=== PATIENT | female | born 1995 | race African-American/Black ===

== ENCOUNTER 2016-06-05 22:25 | Inpatient (IN) | payer SELFPAY ==
[~2016-06-05 22:25] MED LIST: BACTRIM DS TAB1 EAC2 PO; BACTRIM DS TABL1 TAB PO; DIBUCAINE EXT; ESGIC PLUS PO; HUMALOG PUMP; HUMALOG100 U/ML; HUMALOG100 U/ML SC; HUMALOG100 UNIT/1 SC; IBUPROFEN200 M1 PO; ICY HOT BALM TP; KEFLEX500 M4 PO; LANTUS100 UNITS/ SC; MOTRIN600 MG PO; MOTRIN800 MG PO; NEXPLANON68 M1 SC; PERCOCET 5/3251 TAB PO; PRENATAL VITAMI1 TAB PO; PYRIDIUM200 MG PO; SKELAXIN800 MG PO; TRIPNIP TOP; TYLENOL EXTRA500 M1 PO; VALTREX1000 MG PO; ZOFRAN ODT4 MG/UDTAB PO; ZOFRAN4 M1 PO
[2016-06-05 23:04] LABS: BASO % 0.5 % (0-2); BASO ABSOLUTE COUNT 0.1 tho/cmm (0.0-0.2); EOS % 0.2 % (0-7); HCT-HEMATOCRIT 47.4 % (34.0-49.0); HGB-HEMOGLOBIN 15.9 gm/dl (12.0-15.5); IMMATURE GRANULOCYTES ABSOLUTE 0.27 tho/cmm (0-0.03); IMMATURE GRANULOCYTES PERCENT 1.8 % (0-0.3); LYMPH ABSOLUTE COUNT 2.3 tho/cmm (0.8-4.5); MCH (MEAN CORPUSCULAR HGB) 31.5 pg (28.0-32.0); MCHC MEAN CORPUSCULAR HGB CONC 33.5 % (32.0-36.0); MEAN PLATELET VOLUME 10.9 cmc (9.4-12.4); MONOCYTE ABSOLUTE COUNT 0.5 tho/cmm (0.0-1.2); NEUTROPHILS % 79.5 % (40-80); RED BLOOD COUNT 5.04 mil/cmm (4.00-5.20); RED CELL DISTRIBUTION WIDTH 12.3 % (12.4-16.4)
[2016-06-05 23:11] LABS: ARTERIAL BLD GAS O2 SATURATION 97 % (95-98); ARTERIAL PO2 146 mmHg (70-100); BICARBONATE 2 mmol/L (21-28)
[2016-06-05 23:17] LABS: ABG CO2 ARTERIAL 2 mmol/L (21-27)
[2016-06-05 23:18] LABS: ARTERIAL BLOOD GAS PCO2 <8 mmHg (32-45); BLOOD GAS BASE EXCESS -31 mM/L (-/+3)
[2016-06-05 23:19] LABS: KETONE-BETA (WHOLE BLOOD) 3.1 mmol/L (0.0-0.6)
[2016-06-05 23:29] LABS: URINE BILIRUBIN NEGATIVE (NEG); URINE BLOOD SMALL (NEG); URINE GLUCOSE (UA) LARGE (NEG); URINE KETONE LARGE (NEG); URINE LEUKOCYTE ESTERASE NEGATIVE (NEG); URINE NITRITE NEGATIVE (NEG); URINE PROTEIN MODERATE (NEG)
[2016-06-05 23:31] LABS: URINE APPEARANCE HAZY; URINE COLOR YELLOW
[2016-06-05 23:56] LABS: URINE AMORPHOUS 2+; URINE RBC 0 /[HPF] (0-5); URINE WBC 0 /[HPF] (0-5)
[2016-06-06 00:28] LABS: PLATELET COUNT 110 tho/cmm (150-450)
[2016-06-06 00:38] LABS: PREGNANCY-SERUM NEGATIVE (NEGATIVE)
[2016-06-06 00:58] LABS: ALB/GLOB RATIO 0.8 (0.8-2.0); ALBUMIN 3.8 g/dl (3.5-5.0); ALKALINE PHOSPHATASE 133 U/L (33-138); ALT/SGPT 64 U/L (12-78); BILIRUBIN,TOTAL 0.4 mg/dl (0-1.5); BLOOD UREA NITROGEN 15 mg/dl (6-24); CALCIUM 7.4 mg/dl (8.5-10.5); CHLORIDE 106 mmol/l (96-110); CREATININE 1.23 mg/dl (0.50-1.10); PHOSPHOROUS 3.6 mg/dl (2.5-4.9); SODIUM 136 mmol/L (135-145); eGFR VALUE FOR BLACK 72 mL/Min
[2016-06-06 01:10] LABS: ANION GAP 30 mmol/L (0-20); AST/SGOT 41 U/L (10-40); MAGNESIUM 2.1 mg/dl (1.8-2.6); POTASSIUM 4.6 mmol/L (3.7-5.1); PROCALCITONIN 0.12 ng/ml (0.05-0.09)
[2016-06-06 01:12] LABS: CARBON DIOXIDE-VENOUS 5 mmol/L (22-32); GLUCOSE 495 mg/dL (70-110)
[2016-06-06 04:00] LABS: MAGNESIUM 1.9 mg/dl (1.8-2.6); POTASSIUM 4.3 mmol/L (3.7-5.1)
[2016-06-06 04:26] LABS: ARTERIAL BLD GAS O2 SATURATION 98 % (95-98); BICARBONATE 6 mmol/L (21-28); BLOOD GAS BASE EXCESS -23 mM/L (-/+3)
[2016-06-06 04:28] LABS: ARTERIAL PO2 122 mmHg (70-100)
[2016-06-06 04:29] LABS: ABG CO2 ARTERIAL 5 mmol/L (21-27); ARTERIAL BLOOD GAS PCO2 18 mmHg (32-45); PH 7.14 Units (7.35-7.45)
[2016-06-06 05:11] LABS: ANION GAP 25 mmol/L (0-20); BLOOD UREA NITROGEN 12 mg/dl (6-24); CALCIUM 7.2 mg/dl (8.5-10.5); CHLORIDE 116 mmol/l (96-110); CREATININE 0.89 mg/dl (0.50-1.10); GLUCOSE 162 mg/dL (70-110); POTASSIUM 4.4 mmol/L (3.7-5.1); SODIUM 143 mmol/L (135-145); eGFR VALUE FOR BLACK >90 mL/Min
[2016-06-06 05:13] LABS: CARBON DIOXIDE-VENOUS 6 mmol/L (22-32)
[2016-06-06 10:50] LABS: ANION GAP 15 mmol/L (0-20); BLOOD UREA NITROGEN 8 mg/dl (6-24); CALCIUM 7.6 mg/dl (8.5-10.5); CHLORIDE 114 mmol/l (96-110); CREATININE 0.85 mg/dl (0.50-1.10); GLUCOSE 106 mg/dL (70-110); POTASSIUM 4.1 mmol/L (3.7-5.1); SODIUM 140 mmol/L (135-145); eGFR VALUE FOR BLACK >90 mL/Min
[2016-06-06 11:00] LABS: CARBON DIOXIDE-VENOUS 15 mmol/L (22-32)
[2016-06-06 16:40] LABS: ANION GAP 18 mmol/L (0-20); BLOOD UREA NITROGEN 7 mg/dl (6-24); CALCIUM 7.6 mg/dl (8.5-10.5); CARBON DIOXIDE-VENOUS 14 mmol/L (22-32); CHLORIDE 113 mmol/l (96-110); CREATININE 0.94 mg/dl (0.50-1.10); GLUCOSE 135 mg/dL (70-110); SODIUM 141 mmol/L (135-145); eGFR VALUE FOR BLACK >90 mL/Min
[2016-06-06 19:48] LABS: ANION GAP 15 mmol/L (0-20); BLOOD UREA NITROGEN 6 mg/dl (6-24); CALCIUM 7.7 mg/dl (8.5-10.5); CARBON DIOXIDE-VENOUS 15 mmol/L (22-32); CHLORIDE 113 mmol/l (96-110); CREATININE 0.84 mg/dl (0.50-1.10); GLUCOSE 133 mg/dL (70-110); POTASSIUM 3.7 mmol/L (3.7-5.1); SODIUM 139 mmol/L (135-145); eGFR VALUE FOR BLACK >90 mL/Min
[2016-06-07 00:55] LABS: BLOOD UREA NITROGEN 5 mg/dl (6-24); CALCIUM 7.6 mg/dl (8.5-10.5); CHLORIDE 112 mmol/l (96-110); SODIUM 139 mmol/L (135-145); eGFR VALUE FOR BLACK >90 mL/Min
[2016-06-07 01:00] LABS: ANION GAP 19 mmol/L (0-20); CARBON DIOXIDE-VENOUS 12 mmol/L (22-32); GLUCOSE 205 mg/dL (70-110); POTASSIUM 3.7 mmol/L (3.7-5.1)
[2016-06-07 04:31] LABS: BASO % 0.1 % (0-2); EOS % 0.1 % (0-7); HGB-HEMOGLOBIN 13.4 gm/dl (12.0-15.5); IMMATURE GRANULOCYTES ABSOLUTE 0.09 tho/cmm (0-0.03); IMMATURE GRANULOCYTES PERCENT 0.5 % (0-0.3); LYMPH % 14.9 % (20-45); LYMPH ABSOLUTE COUNT 2.5 tho/cmm (0.8-4.5); MCHC MEAN CORPUSCULAR HGB CONC 34.4 % (32.0-36.0); MCV (MEAN CELL VOLUME) 90.3 fl (82.0-96.0); MEAN PLATELET VOLUME 9.4 cmc (9.4-12.4); MONO % 4.4 % (0-12); MONOCYTE ABSOLUTE COUNT 0.7 tho/cmm (0.0-1.2); NEUTROPHIL ABSOLUTE COUNT 13.4 tho/cmm (1.6-8.0); NEUTROPHIL-AUTOMATED 13.4 tho/cmm (1.6-8.0); RED BLOOD COUNT 4.32 mil/cmm (4.00-5.20); RED CELL DISTRIBUTION WIDTH 11.8 % (12.4-16.4); WHITE BLOOD COUNT 16.8 tho/cmm (4.0-10.0)
[2016-06-07 04:48] LABS: ANION GAP 19 mmol/L (0-20); BLOOD UREA NITROGEN 4 mg/dl (6-24); CALCIUM 7.7 mg/dl (8.5-10.5); CARBON DIOXIDE-VENOUS 15 mmol/L (22-32); CHLORIDE 109 mmol/l (96-110); CREATININE 0.97 mg/dl (0.50-1.10); MAGNESIUM 1.9 mg/dl (1.8-2.6); POTASSIUM 3.7 mmol/L (3.7-5.1); SODIUM 139 mmol/L (135-145); eGFR VALUE FOR BLACK >90 mL/Min
[2016-06-07 04:51] LABS: GLUCOSE 206 mg/dL (70-110)
[2016-06-07 04:53] LABS: PHOSPHOROUS 0.7 mg/dl (2.5-4.9)
[2016-06-07 05:04] LABS: PLATELET COUNT 195 tho/cmm (150-450)
[2016-06-07 08:45] LABS: ANION GAP 19 mmol/L (0-20); BLOOD UREA NITROGEN 3 mg/dl (6-24); CALCIUM 7.5 mg/dl (8.5-10.5); CARBON DIOXIDE-VENOUS 17 mmol/L (22-32); CHLORIDE 110 mmol/l (96-110); CREATININE 0.86 mg/dl (0.50-1.10); GLUCOSE 172 mg/dL (70-110); POTASSIUM 3.7 mmol/L (3.7-5.1); SODIUM 142 mmol/L (135-145); eGFR VALUE FOR BLACK >90 mL/Min
[2016-06-07 13:05] LABS: ANION GAP 17 mmol/L (0-20); BLOOD UREA NITROGEN 1 mg/dl (6-24); CALCIUM 7.5 mg/dl (8.5-10.5); CARBON DIOXIDE-VENOUS 18 mmol/L (22-32); CHLORIDE 108 mmol/l (96-110); CREATININE 0.81 mg/dl (0.50-1.10); GLUCOSE 178 mg/dL (70-110); POTASSIUM 3.4 mmol/L (3.7-5.1); SODIUM 140 mmol/L (135-145); eGFR VALUE FOR BLACK >90 mL/Min
[2016-06-07 16:00] LABS: KETONE-BETA (WHOLE BLOOD) 0.2 mmol/L (0.0-0.6)
[2016-06-07 16:09] LABS: ANION GAP 15 mmol/L (0-20); BLOOD UREA NITROGEN 1 mg/dl (6-24); CALCIUM 7.4 mg/dl (8.5-10.5); CARBON DIOXIDE-VENOUS 21 mmol/L (22-32); CHLORIDE 105 mmol/l (96-110); CREATININE 0.63 mg/dl (0.50-1.10); GLUCOSE 187 mg/dL (70-110); MAGNESIUM 1.9 mg/dl (1.8-2.6); POTASSIUM 3.3 mmol/L (3.7-5.1); SODIUM 138 mmol/L (135-145); eGFR VALUE FOR BLACK >90 mL/Min
[2016-06-07 19:28] LABS: ANION GAP 16 mmol/L (0-20); BUN/CREATININE RATIO 1.4 RATIO (6-25); CALCIUM 7.4 mg/dl (8.5-10.5); CARBON DIOXIDE-VENOUS 21 mmol/L (22-32); CHLORIDE 105 mmol/l (96-110); CREATININE 0.69 mg/dl (0.50-1.10); GLUCOSE 181 mg/dL (70-110); POTASSIUM 3.2 mmol/L (3.7-5.1); SODIUM 139 mmol/L (135-145); eGFR VALUE FOR BLACK >90 mL/Min
[2016-06-07 19:30] LABS: BLOOD UREA NITROGEN <1 mg/dl (6-24)
[2016-06-07 19:41] LABS: PROCALCITONIN 0.19 ng/ml (0.05-0.09)
[2016-06-07 23:41] LABS: ANION GAP 15 mmol/L (0-20); BLOOD UREA NITROGEN 2 mg/dl (6-24); CALCIUM 7.8 mg/dl (8.5-10.5); CARBON DIOXIDE-VENOUS 23 mmol/L (22-32); CHLORIDE 102 mmol/l (96-110); CREATININE 0.97 mg/dl (0.50-1.10); GLUCOSE 202 mg/dL (70-110); POTASSIUM 3.7 mmol/L (3.7-5.1); SODIUM 136 mmol/L (135-145); eGFR VALUE FOR BLACK >90 mL/Min
[2016-06-08 03:17] LABS: BASO % 0.4 % (0-2); EOS % 0.3 % (0-7); HCT-HEMATOCRIT 38.3 % (34.0-49.0); HGB-HEMOGLOBIN 13.4 gm/dl (12.0-15.5); IMMATURE GRANULOCYTES ABSOLUTE 0.04 tho/cmm (0-0.03); IMMATURE GRANULOCYTES PERCENT 0.4 % (0-0.3); LYMPH % 27.9 % (20-45); LYMPH ABSOLUTE COUNT 2.6 tho/cmm (0.8-4.5); MCH (MEAN CORPUSCULAR HGB) 31.2 pg (28.0-32.0); MCV (MEAN CELL VOLUME) 89.3 fl (82.0-96.0); MEAN PLATELET VOLUME 9.8 cmc (9.4-12.4); MONO % 6.1 % (0-12); MONOCYTE ABSOLUTE COUNT 0.6 tho/cmm (0.0-1.2); NEUTROPHIL ABSOLUTE COUNT 6.1 tho/cmm (1.6-8.0); NEUTROPHIL-AUTOMATED 6.1 tho/cmm (1.6-8.0); NEUTROPHILS % 64.9 % (40-80); PLATELET COUNT 163 tho/cmm (150-450); RED BLOOD COUNT 4.29 mil/cmm (4.00-5.20); RED CELL DISTRIBUTION WIDTH 11.7 % (12.4-16.4); WHITE BLOOD COUNT 9.5 tho/cmm (4.0-10.0)
[2016-06-08 03:30] LABS: MAGNESIUM 2.2 mg/dl (1.8-2.6)
[2016-06-08 03:35] LABS: PHOSPHOROUS 0.7 mg/dl (2.5-4.9)
[2016-06-08 08:37] LABS: ANION GAP 16 mmol/L (0-20); BLOOD UREA NITROGEN 1 mg/dl (6-24); CALCIUM 7.5 mg/dl (8.5-10.5); CARBON DIOXIDE-VENOUS 24 mmol/L (22-32); CHLORIDE 104 mmol/l (96-110); CREATININE 0.58 mg/dl (0.50-1.10); GLUCOSE 179 mg/dL (70-110); POTASSIUM 3.7 mmol/L (3.7-5.1); SODIUM 140 mmol/L (135-145); eGFR VALUE FOR BLACK >90 mL/Min
[2016-06-08 11:59] LABS: ANION GAP 17 mmol/L (0-20); BLOOD UREA NITROGEN 5 mg/dl (6-24); CALCIUM 7.7 mg/dl (8.5-10.5); CARBON DIOXIDE-VENOUS 22 mmol/L (22-32); CHLORIDE 98 mmol/l (96-110); CREATININE 0.53 mg/dl (0.50-1.10); POTASSIUM 4.1 mmol/L (3.7-5.1); SODIUM 133 mmol/L (135-145); eGFR VALUE FOR BLACK >90 mL/Min
[2016-06-08 12:03] LABS: GLUCOSE 470 mg/dL (70-110)
[2016-06-09 04:26] LABS: ANION GAP 10 mmol/L (0-20); BLOOD UREA NITROGEN 5 mg/dl (6-24); CALCIUM 8.3 mg/dl (8.5-10.5); CARBON DIOXIDE-VENOUS 31 mmol/L (22-32); CHLORIDE 100 mmol/l (96-110); CREATININE 0.56 mg/dl (0.50-1.10); MAGNESIUM 1.9 mg/dl (1.8-2.6); PHOSPHOROUS 3.1 mg/dl (2.5-4.9); POTASSIUM 3.4 mmol/L (3.7-5.1); SODIUM 138 mmol/L (135-145); eGFR VALUE FOR BLACK >90 mL/Min
[2016-06-09 04:58] LABS: GLUCOSE 71 mg/dL (70-110)
[2016-06-09] MEDS ORDERED: SUCRALFATE1 GM/10 ML PO (13:15)
[2016-06-09] MEDS ORDERED: PRILOSEC OTC20 M1 PO ×2 (13:29→13:39)
[2016-06-09] MEDS ORDERED: NOVOLOG100 UNITS/ (13:33)
[2016-09-10] MEDS ORDERED: LEVEMIR100 UNITS/ SC (11:07)
== END 2016-06-09 14:09 | DRG 637 ==
LOC: EDMED 22:25 → EMR2 06-06 04:28 → CCU 06-06 04:29
PROVIDERS: Emergency Medicine; Internal Medicine; Registered Nurse; ADMIT Hospitalist
PROC: 02HV33Z Insertion of Infusion Device into Superior Vena Cava, Percutaneous Approach (ICD-10-PCS; principal; 2016-06-06)
PROC: 0DB58ZX Excision of Esophagus, Via Natural or Artificial Opening Endoscopic, Diagnostic (ICD-10-PCS; 2016-06-09)
PROC: 0DB68ZX Excision of Stomach, Via Natural or Artificial Opening Endoscopic, Diagnostic (ICD-10-PCS; 2016-06-09)
DX: E10.11 Type 1 diabetes mellitus with ketoacidosis with coma (principal); G93.41 Metabolic encephalopathy; R13.10 Dysphagia, unspecified; K29.80 Duodenitis without bleeding; Z79.4 Long term (current) use of insulin; F17.220 Nicotine dependence, chewing tobacco, uncomplicated; F19.90 Other psychoactive substance use, unspecified, uncomplicated; D72.829 Elevated white blood cell count, unspecified; K21.0 Gastro-esophageal reflux disease with esophagitis
CPT/HCPCS: C1751; C9113; J1650; J1815; J2405; J2543; J3475; J3480; J7030; J7040; J7050